=== PATIENT | male | born 1980 | race Caucasian/White ===

== ENCOUNTER 2020-12-03 01:46 | Emergency (ER) | payer BC, SELFPAY ==
--- NOTE | ~2020-12-03 | CT_ITS ---
EXAMINATION: CT brain wo con DATE: 12/03/2020 04:02 INDICATION: Headaches, dizziness. Covid-positive. TECHNIQUE: Computed tomographic angiography (CTA) of the head was performed without and with 100 mL O mnipaque-350 intravenous contrast. Exam dose: 605.33 mGy-cm total exam DLP. Volume-rendered and ma ximum intensity projection 3D reconstructions of the intracranial arteries were created by the techno logist on a separate workstation. COMPARISON: None. FINDINGS: No intracranial mass lesion or hemorrhage or cerebrovascular accident. No midline shift or mass effect. Normal ventricular size. Normal thompson-white matter differentiation. No subdural or epidural hematoma. The orbital contents are unremarkable. No fracture or bone destruction of the cranial vault. There is mucosal periosteal thickening of moderately prominent degree involving the right and to a le sser extent sphenoid sinuses. IMPRESSION: No significant intracranial abnormality Bilateral sphenoid sinus mucoperiosteal thickening Reviewed, dictated and finalized at [facility]. Reviewed, dictated and finalized at [facility].
[2020-12-03 02:09] VITALS: BP 152/102; PULSE 86; RESP 17; TEMP 36.7; O2SAT 99
[2020-12-03] MEDS: SODIUM CHLORIDE 0.9% IV 1,000 ML 999 ML IV CONT (04:22)
[2020-12-03] MEDS: diphenhydrAMINE HCl INJ 50 MG/ML VIAL 25 MG IV PUSH (04:22)
[2020-12-03] MEDS: PROCHLORPERAZINE EDISYLATE 10 MG/2 ML VIAL IV PUSH (04:22)
[2020-12-03 04:49] LABS: Basophils Absolute Auto 0.1 K/mm3 (0.0-0.1); Basophils Percent Auto 0.8 % (0.2-1.2); Eosinophils Absolute Auto 0.2 K/mm3 (0-0.3); Eosinophils Percent Auto 2.7 % (0-4.4); Hematocrit 52.6 % (42.0-52.0); Hemoglobin 17.8 g/dL (14.0-18.0); Immature Granulocyte Absolute 0.02 K/mm3 (0.00-0.031); Immature Granulocyte Percent A 0.2 % (0-0.5); Lymphocytes Percent Auto 18.7 % (18.3-44.2); Mean Corpuscular HGB Conc 33.8 g/dl (32-36); Mean Corpuscular Hemoglobin 29.9 pg (26-34); Mean Corpuscular Volume 88.3 fl (80-100); Mean Platelet Volume 9.7 fl (7.4-10.4); Monocytes Absolute Auto 0.7 K/mm3 (0.1-0.6); Monocytes Percent Auto 7.8 % (2.6-8.5); Neutrophils Percent Auto 69.8 % (45.5-73.1); Platelet Count Result 334 k/mm3 (150-375); Red Blood Count 5.96 M/mm3 (4.6-6.20); White Blood Count 8.6 K/mm3 (4.5-10.0)
[2020-12-03 05:00] LABS: Alanine Aminotransferase 45 U/L (4-50); Albumin Level 4.7 g/dL (3.5-5.1); Alkaline Phosphatase 103 U/L (38-126); Anion Gap 9 mmol/L (8-16); Aspartate Amino Transferase 35 U/L (17-59); Bilirubin,Total 0.6 mg/dL (0.2-1.3); Blood Urea Nitrogen 12 mg/dL (9-20); Calcium 9.2 mg/dL (8.4-10.2); Carbon Dioxide 25 mmol/L (22-30); Chloride 103 mmol/L (98-107); Estimated CRCL calculation 161 ml/min; Estimated Glomerular Filt Rate > 60; Glucose 98 mg/dL (65-110); Potassium 4.3 mmol/L (3.4-5.0); Sodium 137 mmol/L (137-145)
--- NOTE | 2020-12-03 05:18 | ED.HA ---
HPI - Headache General Chief Complaint: Headache Stated Complaint: covid positive/headache/dizziness Time Seen by Provider: 12/03/20 03:17 Source: patient History of Present Illness HPI Narrative: Patient presents with headache. Reports he was diagnosed with Covid approximately 1 week ago over the past few days he noted temporal headache that has been constant and slowly getting worse. Says the noted some paresthesias and some blurry vision associated with his headache. He is attempted [id number] medications without significant relief. Reports his only relief is when he puts a cold compress on his head and rest. He denies prior history of migraines. He denies focal areas of weakness denies any recent trauma he denies any IV drug use recent spinal instrumentation or neck pain Related Data Allergies Allergy/AdvReac Type Severity Reaction Status Date / Time clarithromycin Allergy Mild Other Verified 12/03/20 04:39 ERYTHROMYCINS Allergy Mild Other Uncoded 12/03/20 04:39 Review of Systems Review of Systems: CONSTITUTIONAL: Denies fever, chills, or sweats. EYES: Denies visual changes, redness, or discharge. ENT: Denies rhinorrhea, congestion, sore throat, or otalgia. CARDIOVASCULAR: Denies chest pain, palpitations, or edema. RESPIRATORY: Denies cough or dyspnea. GASTROINTESTINAL: Denies abdominal pain, nausea, vomiting, or diarrhea. GENITOURINARY: Denies dysuria or hematuria. SKIN: Denies rash or itching. MUSCULOSKELETAL: Denies back pain, joint pain, or myalgia. NEUROLOGIC: Denies focal weakness. PSYCHIATRIC: Denies anxiety or depression. All systems reviewed & are unremarkable except as noted in HPI and below Exam Narrative: GENERAL: Well-appearing, well-nourished, and in no acute distress. HEAD: Normocephalic, atraumatic. EYES: PERRLA and EOMI. ENT: Nares clear, no rhinorrhea or epistaxis. Mucous membranes moist. NECK: Supple. No masses. No JVD CHEST: Clear to auscultation. No respiratory distress. No wheezes rales or rhonchi HEART: Regular rate and rhythm. No murmur heard. Normal peripheral pulses. ABDOMEN: Soft, nontender, nondistended, normal active bowel sounds. EXTREMITIES: Normal range of motion. No edema. SKIN: Warm, dry, no rash. NEURO: Cranial nerves II through XII are intact patient has 5 out of 5 strength in all extremities, sensation intact to light touch in all extremities alert and oriented x3. PSYCH: Normal mood and affect. Course Reevaluation(s) Reevaluation #1: Patient reports feeling much improved results and plan reviewed with patient. Patient, with the outpatient plan. Date: 12/03/20 Time: 05:18 Vital Signs Vital signs: Vital Signs Temperature 36.7 C 12/03/20 02:09 Pulse Rate 86 12/03/20 02:09 Respiratory Rate 17 12/03/20 02:09 Blood Pressure 152/102 H 12/03/20 02:09 Pulse Oximetry 99 12/03/20 02:09 Temperature 36.7 C 12/03/20 02:09 Pulse Rate 78 12/03/20 05:43 Respiratory Rate 18 12/03/20 05:43 Blood Pressure 178/100 H 12/03/20 05:43 Pulse Oximetry 100 12/03/20 05:43 MDM - Headache MDM Narrative Medical decision making narrative: H&P as above, vss, pt looks clinically well, exam without focal neurological deficits, labs clinically unremarkable, img without acute process, additional labs/img considered. symptomatic relief available as needed, on reevaluation pt continues to looks clinically well reports large improvement in symptoms. Suspect migraine likely exacerbated by Covid infection, dns intracranial hemorrhage, meningitis, encephalitis, mass, severe sepsis. plan to tx/monitor as op w/ pcm f/u findings/plan discussed with pt, pt agree/comfortable with plan, return precautions given Lab Data Result diagrams: 12/03/20 04:24 12/03/20 04:24 Labs: Lab Results 12/03/20 12/03/20 Range/Units 04:24 04:24 WBC 8.6 (4.5-10.0) K/mm3 RBC 5.96 (4.6-6.20) M/mm3 Hgb 17.8 (14.0-18.0) g/dL Hct 52.6 H (42.0-52.0) % MCV 88
[2020-12-03 05:43] VITALS: BP 178/100; PULSE 78; RESP 18; O2SAT 100
== END 2020-12-03 05:44 | disposition home or self-care (01) ==
PROVIDERS: Emergency Provider Emergency Medicine; PCP Student in an Organized Health Care Education/Training Program
DX: R51.9 Headache, unspecified (principal); U07.1 COVID-19
CPT/HCPCS: 36415; 70450; 80053; 85025; 96361; 96365; 96375; 99284; J0131; J0780; J1200; J7030